=== PATIENT | male | born 1975 | race Caucasian/White ===

== ENCOUNTER → 2017-05-02 | Outpatient (CLI) | payer BC ==
--- NOTE | 2017-05-02 14:03 | ECHOS ---
STRESS ECHOCARDIOGRAM INDICATIONS: Chest pain. MEDICATIONS: Omeprazole. BASELINE HEART RATE: 89 BASELINE BLOOD PRESSURE: 124/87 MAXIMUM HEART RATE: 164 MAXIMUM BLOOD PRESSURE: 138/62 85% MPHR: 152 100% MPHR: 179 METS: 11.9 MAXIMUM STAGE REACHED: 4 TOTAL EXERCISE TIME: 10:15 CLINICAL INFORMATION: A 41-year-old, male patient with history of chest discomfort. Baseline heart rate 89 beats per minute. Baseline blood pressure 124/87 mmHg. Baseline 12-lead ECG shows normal sinus rhythm with early repolarization abnormality. Patient exercised on a Edward protocol for 10 minutes 15 seconds achieving a peak heart rate of 164 beats per minute. Normal blood pressure response to exercise. There was no ECG evidence for ischemia. No arrhythmias were noted. The baseline 2D echo images showed normal LV size and systolic function without segmental wall motion abnormalities. There was excellent augmentation of overall LV contractility at peak exercise, without development of any wall motion abnormalities. At recovery, regional global LV systolic function remain normal. IMPRESSION: 1. No ECG or echocardiographic evidence for ischemia. 2. Good exercise capacity. MMODL / IJN: [id number] /
== END | disposition home or self-care (01) ==
LOC: RADNMMAIN 09:11
PROVIDERS: ATTEND Family Medicine
DX: R07.9 Chest pain, unspecified (principal)
CPT/HCPCS: 93017; 93350

== ENCOUNTER → 2018-01-16 | Outpatient (CLI) | payer BC ==
--- NOTE | 2018-01-16 17:04 | XR ---
EXAMINATION TYPE: XR foot complete RT DATE OF EXAM: 01/16/2018 COMPARISON: NONE HISTORY: Foot pain TECHNIQUE: 3 views FINDINGS: I see no fracture nor dislocation. Metatarsals are intact. Joint spaces are normal. There a re plantar and Achilles calcaneal spurs. IMPRESSION: No fracture. Calcaneal spurring.
--- NOTE | 2018-01-16 18:13 | US ---
EXAMINATION TYPE: US thyroid st tissue head/neck DATE OF EXAM: 01/16/2018 COMPARISON: NONE CLINICAL HISTORY: E04.1 Nontoxic Single Thyroid Nodule. thyroid nodule GLAND SIZE: Right Lobe: 4.6 x 1.1 x 1.9 cm Overall Parenchyma: homogenous Left Lobe: 4.4 x 1.4 x 1.6 cm Overall Parenchyma: homogeneous Isthmus Thickness: 0.3 cm NODULES RIGHT: # of nodules measured on right: 0 LEFT: # of nodules measured on left: 1 1. 0.8 X 0.4 x 0.6 cm isoechoic solid nodule at the upper pole with poorly defined margins; . This nodule is wider than tall and shows intranodular vascularity. Prior size: no prior exam ISTHMUS: # of nodules measured in the isthmus: 0 IMPRESSION: Small oval-shaped hypoechoic nodule in the left thyroid lobe. Sonographic features are benign. Since this is solitary this could be followed conservatively with repeat ultrasound in one year.
== END | disposition home or self-care (01) ==
LOC: RADUSMAIN 16:20
PROVIDERS: ATTEND Family Medicine
DX: M77.31 Calcaneal spur, right foot (principal); E04.1 Nontoxic single thyroid nodule
CPT/HCPCS: 76536

== ENCOUNTER → 2018-03-17 | Outpatient (CLI) | payer BC ==
--- NOTE | 2018-03-17 07:52 | US ---
EXAMINATION TYPE: US gallbladder DATE OF EXAM: 03/17/2018 COMPARISON: NONE CLINICAL HISTORY: R10.11 Upper quadrant pain. EXAM MEASUREMENTS: Liver Length: 15.1 cm Gallbladder Wall: 0.2 cm CBD: 0.3 cm Right Kidney: 11.2 x 3.8 x 5.2 cm Pancreas: Tail obscured by overlying bowel gas Liver: wnl Gallbladder: wnl Evidence for sonographic Chris's sign: No CBD: wnl Right Kidney: echogenic foci, possible kidney stone measuring 0.2 x 0.2 x 0.3cm IMPRESSION: 1. Nonobstructing 3 mm right renal calculus. 2. No sonographic evidence of cholelithiasis or acute cholecystitis.
== END | disposition home or self-care (01) ==
LOC: RADUSWWP 07:05
PROVIDERS: ATTEND Family Medicine
DX: N20.0 Calculus of kidney (principal)
CPT/HCPCS: 76705

== ENCOUNTER 2018-04-05 13:28 | Emergency (ER) | payer BC ==
[2018-04-05 13:40] VITALS: PULSE 79
[2018-04-05 14:07] VITALS: BP 113/81; RESP 18; TEMP 97.9
--- NOTE | 2018-04-05 14:15 | ED ---
General Adult HPI - General Chief complaint: Recheck/Abnormal Lab/Rx Stated complaint: Boil on forehead Source: patient, RN notes reviewed, old records reviewed Mode of arrival: ambulatory Limitations: no limitations - History of Present Illness Initial comments: 42-year-old male patient with no pertinent past history presents to ED with collection of fluid on forehead. Patient states that he has had this for approximately 10 days. Patient has been able to express a small amount of fluid out of it. Patient has tried heating packs, with minimal success. 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 Patient denies history of infections, skin infections. Patient denies fever chills, nausea vomiting diarrhea, chest pain, shortness of breath, abdominal pain. Systemic: Pt denies fatigue, myalgia, fever/chills, rash. Pt denies weakness, night sweats, weight loss. Neuro: Pt denies headache, visual disturbances, syncope or pre-syncope. HEENT: Pt denies ocular discharge or irritation, otalgia, rhinorrhea, pharyngitis or notable lymphadenopathy. Cardiopulmonary: Pt denies chest pain, SOB, heart palpitations, dyspnea on exertion. Abdominal/GI: Pt denies abdominal pain, n/v/d. : Pt denies dysuria, burning w/ urination, frequency/urgency. Denies new onset urinary or bowel incontinence. MSK: Pt denies myalgia, loss of strength or function in extremities. Neuro: Pt denies new onset weakness, paresthesias. - Related Data Home Medications Medication Instructions Recorded Confirmed Acyclovir 400 mg PO BID 04/05/18 04/05/18 Ranitidine HCl [Zantac] 150 mg PO BID 04/05/18 04/05/18 Previous Rx's Medication Instructions Recorded Sulfamethox-Tmp 800-160Mg [Bactrim 2 tab PO Q12HR 10 Days #20 tab 04/05/18 DS 800-160 mg] Allergies Allergy/AdvReac Type Severity Reaction Status Date / Time No Known Allergies Allergy Verified 04/05/18 14:14 Review of Systems ROS Statement: Those systems with pertinent positive or pertinent negative responses have been documented in the HPI. ROS Other: All systems not noted in ROS Statement are negative. Past Medical History Past Medical History: No Reported History History of Any Multi-Drug Resistant Organisms: None Reported Past Surgical History: No Surgical Hx Reported Past Psychological History: No Psychological Hx Reported Smoking Status: Former smoker Past Alcohol Use History: Occasional Past Drug Use History: Marijuana General Exam - General Exam Comments Initial Comments: Constitutional: NAD, AOX3, Pt has pleasant affect. HEENT: NC/AT, trachea midline, neck supple, no lymphadenopathy. Posterior pharynx non erythematous, without exudates. External ears appear normal, without discharge. Mucous membranes moist. Eyes PERRLA, EOM intact. There is no scleral icterus. No pallor noted. Cardiopulmonary: RRR, no murmurs, rubs or gallops, no JVD noted. Lungs CTAB in anterior and posterior walker. No peripheral edema. Abdominal exam: Abdomen soft and non-distended. Abdomen non-tender to palpation in all 4 quadrants. Bowel sounds active in LLQ. No hepatosplenomegaly. No ecchymosis Neuro: CN II-XII grossly intact. No nuchal rigidity. MSK: No posterior calf tenderness bilaterally, homans sign negative bilaterally. Posterior tibialis and radial pulse +2 bilaterally. Sensation intact in upper and lower extremities. Full active ROM in upper and lower extremities, 5/5 stregnth. Derm: Approximately 2 x 2 centimeter collection of fluid noted on for had approximately 2 cm above left brow. There is mildly erythematous, mildly tender to palpation. No superficial pus noted. Small amount of skin abrasion noted, patient states that this is from scrubbing it with hot towel. Small amount of clear fluid expressed after I&D. Limitations: no limitations Course Vital Signs 04/05/18 04/05/18 13:37 14:02 Temperature 98.5 F 97.9 F Pulse Rate 79 79 Respiratory 16 18 Rate Blood Pressure 112/71 113/81 O2 Sat by Pulse 98 95 Oximetry Medical Decision Making - Medical Decision Making 42-year-old male patient with no pertinent past history presents to ED with collection of fluid on forehead. Patient states that he has had this for approximately 10 days. Patient has been able to express a small amount of fluid out of it. Patient has tried heating packs, with minimal success. 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 Physical exam revealed an approximately 2 x 2 centimeter collection of fluid noted on for had approximately 2 cm above left brow. Physical exam did not reveal any other acute pathology, systems examined including HEENT, cardiopulmonary, abdominal, MSK, neuro. And I&D was conducted with a 27-gauge needle. A small amount of serous fluid was able to be expressed. A todd to be placed on 10 days of Bactrim. Patient to follow-up with his primary care provider in 1-2 days. Patient to return to ED if any symptoms develop including fever chills, worsening erythema, increased in size, nausea vomiting diarrhea, any other new symptoms. Case discussed with Dr. Santillan. Disposition Clinical Impression: Abscess Disposition: HOME SELF-CARE Condition: Good Instructions: Abscess (ED) Additional Instructions: Patient to adhere to previously discussed treatment plan and will take medication(s) as directed. Patient to follow up with PCP in 1-2 days. Patient to return to ED if symptoms do not improve. Prescriptions: Sulfamethox-Tmp 800-160Mg [Bactrim DS 800-160 mg] 2 tab PO Q12HR 10 Days #20 tab Is patient prescribed a controlled substance at d/c from ED?: No Referrals: Tito Lockhart MD [Primary Care Provider] - 1-2 days Time of Disposition: 14:29
== END 2018-04-05 14:47 | disposition home or self-care (01) ==
LOC: EC 13:28
DX: L02.01 Cutaneous abscess of face (principal); Z87.891 Personal history of nicotine dependence; Z79.899 Other long term (current) drug therapy
CPT/HCPCS: 10060; 99283

== ENCOUNTER 2018-04-13 12:10 | Day surgery (SDC) | payer BC ==
[2018-04-10 11:54] VITALS: BMI 29.5
--- NOTE | 2018-04-12 17:10 | P.GSHP ---
History of Present Illness H&P Date: 04/13/18 CHIEF COMPLAINT: GERD and blood in stools HISTORY OF PRESENT ILLNESS: The patient is a 42-year-old male who presents with gastroesophageal reflux disease and blood in stools. Upper and lower endoscopy were offered for further evaluation and management. PAST MEDICAL HISTORY: Please see list. PAST SURGICAL HISTORY: Please see list. MEDICATIONS: Please see list. ALLERGIES: Please see list. SOCIAL HISTORY: No illicit drug use FAMILY HISTORY: No reports of Crohn disease or ulcerative colitis. REVIEW OF ORGAN SYSTEMS: CONSTITUTIONAL: No reports of fevers or chills. GI: Denies any blood in stools or constipation. PHYSICAL EXAM: VITAL SIGNS: Stable GENERAL: Well-developed pleasant in no acute distress. HEENT: No scleral icterus. Extraocular movements grossly intact. Moist buccal mucosa. NECK: Supple without lymphadenopathy. CHEST: Unlabored respirations. Equal bilateral excursions. CARDIOVASCULAR: Regular rate and rhythm. Distal 2+ pulses. ABDOMEN: Soft, nondistended. MUSCULOSKELETAL: No clubbing, cyanosis, or edema. ASSESSMENT: 1. Gastroesophageal reflux disease 2. Blood in stools PLAN: 1. Recommend proceeding with an upper and lower endoscopy Past Medical History Past Medical History: Skin Disorder Additional Past Medical History / Comment(s): intermittent rectal bleeding & abd. pain, boil on forehead History of Any Multi-Drug Resistant Organisms: None Reported Past Surgical History: No Surgical Hx Reported Additional Past Surgical History / Comment(s): wisdom teeth removed Past Anesthesia/Blood Transfusion Reactions: No Reported Reaction Smoking Status: Former smoker - Past Family History Mother Family Medical History: No Reported History Medications and Allergies Home Medications Medication Instructions Recorded Confirmed Type Acyclovir 400 mg PO BID 04/05/18 04/10/18 History Ranitidine HCl [Zantac] 150 mg PO BID 04/05/18 04/10/18 History Allergies Allergy/AdvReac Type Severity Reaction Status Date / Time No Known Allergies Allergy Verified 04/10/18 11:53
[~2018-04-13 12:10] MED LIST: LACTATED RINGERS 1,000 ML IV SCH
[2018-04-13 12:40] VITALS: TEMP 98.2
[2018-04-13] MEDS ORDERED: LIDOCAINE 1% 20 ML VIAL (10MG/ML) FOR IV START INTRADERMA ONE (12:48)
[2018-04-13] MEDS ORDERED: PROPOFOL 10 MG/ML 20 ML VIAL IV ONE (13:12)
--- NOTE | 2018-04-13 13:18 | P.PCN ---
Date of Procedure: 04/13/18 Description of Procedure: PREOPERATIVE DIAGNOSIS: Gastrointestinal bleeding POSTOPERATIVE DIAGNOSIS: Gastrointestinal bleeding Gastritis, superficial Gastroesophageal reflux disease. Erosive esophagitis Diaphragmatic hiatal hernia OPERATION: Esophagogastroduodenoscopy with biopsies along antrum and distal esophagus SURGEON: Elizabeth Russell MD ANESTHESIA: MAC. INDICATIONS: The patient is a 42-year-old male who presents with a history of reflux disease. Benefits and risks of the procedure were described. Informed consent was obtained. DESCRIPTION: The patient was brought into the endoscopy suite and laid in the left lateral decubitus position. An Olympus gastroscope was passed along the posterior oropharynx down to the distal esophagus where the squamocolumnar junction was encountered at 40 cm from the incisors. The stomach was entered and no bile reflux was found. Additional findings are listed below. Biopsies with cold forceps were obtained of the antrum. The first through third portion of the duodenum was examined and unremarkable. Retroflexion of the scope confirmed Hill grade 2 lower esophageal valve. The squamocolumnar junction demonstrated LA grade B erosive esophagitis. The stomach was desufflated. The patient tolerated the procedure well. FINDINGS: Squamocolumnar junction 40 cm from the incisors. Diaphragmatic hiatus at 41 cm. Hiatal hernia, 1 cm Hill grade 2 lower esophageal valve. LA grade B erosive esophagitis. No active duodenitis. Chronic gastritis with recent bleed RECOMMENDATIONS: Upper endoscopy as needed.
--- NOTE | 2018-04-13 13:34 | P.PCN ---
Date of Procedure: 04/13/18 Description of Procedure: PREOPERATIVE DIAGNOSIS: History of gastrointestinal bleeding POSTOPERATIVE DIAGNOSIS: History of gastrointestinal bleeding OPERATION: Colonoscopy to the ileocecal valve and appendiceal orifice. SURGEON: Elizabeth Russell MD. ANESTHESIA: MAC. INDICATIONS: The patient is a 42-year-old male who presents with history of GI bleed. Benefits and risks were described and informed consent was obtained. DESCRIPTION OF PROCEDURE: The patient had undergone Gatorade, MiraLAX and Dulcolax prep. He had been brought into the operating room and laid in the left lateral decubitus position. After adequate intravenous sedation, the rectum was examined with 2% lidocaine jelly. No external hemorrhoids were encountered. The rectal tone was within normal limits. No lesions were palpated in the rectal vault. An Olympus colonoscope was advanced until the ileocecal valve and appendiceal orifice were clearly viewed. The prep was excellent with clear visualization of the mucosal folds. The scope was removed with visualization of each mucosal fold. No scattered diverticulosis was encountered. No colonic polyps were found. No evidence of focal colitis was found. Retroflexion of the scope demonstrated grade 1 internal hemorrhoids without active bleeding or inflammation. The colon was desufflated. The patient had tolerated the procedure well. Withdrawal time was over 6 minutes. FINDINGS: Internal hemorrhoids, grade 1, likely cause of recent rectal bleeding No external prolapsed hemorrhoids. No arteriovenous malformations. No adenomatous polyps. No focal colitis. RECOMMENDATIONS: Lower endoscopy every 10 years per screening guidelines; however down to 5 years with family history of colon polyps or cancer. Plan - Discharge Summary New Discharge Prescriptions: No Action Ranitidine HCl [Zantac] 150 mg PO BID Acyclovir 400 mg PO BID Discharge Medication List Acyclovir 400 mg PO BID 04/05/18 [History] Ranitidine HCl [Zantac] 150 mg PO BID 04/05/18 [History] Follow up Appointment(s)/Referral(s): Elizabeth Russell MD [STAFF PHYSICIAN] - 05/05/18 Patient Instructions/Handouts: *[facility] - (Anesthesia) Endoscopy Discharge Instructions Discharge Disposition: HOME SELF-CARE
[2018-04-13 14:16] VITALS: BP 131/82; PULSE 66; RESP 18
== END 2018-04-13 14:37 | disposition home or self-care (01) ==
LOC: ORWHC2ENDO 12:10
PROVIDERS: ATTEND Surgery Plastic and Reconstructive Surgery
DX: K21.0 Gastro-esophageal reflux disease with esophagitis (principal); K22.10 Ulcer of esophagus without bleeding; K92.1 Melena; K64.0 First degree hemorrhoids; K44.9 Diaphragmatic hernia without obstruction or gangrene; K29.50 Unspecified chronic gastritis without bleeding; J44.9 Chronic obstructive pulmonary disease, unspecified; Z87.19 Personal history of other diseases of the digestive system; Z87.891 Personal history of nicotine dependence; Z79.899 Other long term (current) drug therapy
CPT/HCPCS: 88305; 45378; 43239; J2704

== ENCOUNTER 2018-05-18 09:02 | Emergency (ER) | payer BC ==
[2018-05-18 09:22] VITALS: RESP 18
[2018-05-18] MEDS ORDERED: ONDANSETRON 4 MG ODT STARTER PACK 2 TAB BTL PO STA (10:18)
[2018-05-18] MEDS ORDERED: ONDANSETRON ODT 4 MG TAB PO STA (10:18)
--- NOTE | 2018-05-18 10:25 | ED ---
General Adult HPI - General Chief complaint: Nausea/Vomiting/Diarrhea Stated complaint: vomiting Time Seen by Provider: 05/18/18 09:20 Source: patient, RN notes reviewed Mode of arrival: ambulatory Limitations: no limitations - History of Present Illness Initial comments: This is a 42-year-old male who presents emergency Department complaining of vomiting all night and having diarrhea. Patient states he went to bed and felt fine he woke up in the middle the night vomiting and having diarrhea. Patient states she's had no fever chills. Patient denies any abdominal pain. Patient states he's been able to drink a little water this morning but he hasn't drink too much per patient states he hasn't eaten anything yet today. Patient states his doctor couldn't see him so he came to the emergency department. Patient denies any chest pain difficult breathing shortness breath per patient denies any back pain. Patient denies dysuria hematuria urinary frequency. - Related Data Home Medications Medication Instructions Recorded Confirmed Acyclovir 400 mg PO BID 04/05/18 05/18/18 Ranitidine HCl [Zantac] 150 mg PO BID 04/05/18 05/18/18 Multivit-Min/Folic/Vit K/Lycop 1 tab PO DAILY 05/18/18 05/18/18 [Men's Multivitamin Tablet] Allergies Allergy/AdvReac Type Severity Reaction Status Date / Time No Known Allergies Allergy Verified 05/18/18 09:33 Review of Systems ROS Statement: Those systems with pertinent positive or pertinent negative responses have been documented in the HPI. ROS Other: All systems not noted in ROS Statement are negative. Past Medical History Past Medical History: Skin Disorder Additional Past Medical History / Comment(s): intermittent rectal bleeding & abd. pain, boil on forehead History of Any Multi-Drug Resistant Organisms: None Reported Past Surgical History: No Surgical Hx Reported Additional Past Surgical History / Comment(s): wisdom teeth removed Past Anesthesia/Blood Transfusion Reactions: No Reported Reaction Past Psychological History: No Psychological Hx Reported Smoking Status: Former smoker - Past Family History Mother Family Medical History: No Reported History General Exam - General Exam Comments Initial Comments: GENERAL: Patient is well-developed and well-nourished. Patient is nontoxic and well- hydrated and is in mild distress. ENT: Neck is soft and supple. No significant lymphadenopathy is noted. Oropharynx is clear. Moist mucous membranes. Neck has full range of motion without eliciting any pain. EYES: The sclera were anicteric and conjunctiva were pink and moist. Extraocular movements were intact and pupils were equal round and reactive to light. Eyelids were unremarkable. PULMONARY: Unlabored respirations. Good breath sounds bilaterally. No audible rales rhonchi or wheezing was noted. CARDIOVASCULAR: There is a regular rate and rhythm without any murmurs gallops or rubs. ABDOMEN: Soft and nontender with normal bowel sounds. No palpable organomegaly was noted. There is no palpable pulsatile mass. SKIN: Skin is clear with no lesions or rashes and otherwise unremarkable. NEUROLOGIC: Patient is alert and oriented x3. Cranial nerves II through XII are grossly intact. Motor and sensory are also intact. Normal speech, volume and content. Symmetrical smile. MUSCULOSKELETAL: Normal extremities with adequate strength and full range of motion. LYMPHATICS: No significant lymphadenopathy is noted PSYCHIATRIC: Normal psychiatric evaluation. Limitations: no limitations Course Vital Signs 05/18/18 09:18 Temperature 99.5 F Pulse Rate 89 Respiratory 18 Rate Blood Pressure 140/93 O2 Sat by Pulse 99 Oximetry Disposition Clinical Impression: Gastroenteritis Disposition: HOME SELF-CARE Condition: Good Instructions (If sedation given, give patient instructions): Acute Nausea and Vomiting (ED), Gastroenteritis (ED) Is patient prescribed a controlled substance at d/c from ED?: No Referrals: Tito Lockhart MD [Primary Care Provider] - 1-2 days Time of Disposition: 10:24
[2018-05-18 11:02] VITALS: BP 134/79; PULSE 87; TEMP 99.1
== END 2018-05-18 11:01 | disposition home or self-care (01) ==
LOC: EC 09:02
DX: K52.9 Noninfective gastroenteritis and colitis, unspecified (principal); Z87.891 Personal history of nicotine dependence; Z79.899 Other long term (current) drug therapy
CPT/HCPCS: 99283; S0119

== ENCOUNTER → 2018-10-02 | Outpatient (CLI) | payer BC ==
--- NOTE | 2018-10-02 08:24 | US ---
EXAMINATION TYPE: US abdomen complete DATE OF EXAM: 10/02/2018 COMPARISON: us 03/17/2018 CLINICAL HISTORY: R10.9 Abdominal pain. EXAM MEASUREMENTS: Liver Length: 16.7 cm Gallbladder Wall: 0.2 cm CBD: 0.3 cm Spleen: 10.9 cm Right Kidney: 10.4 x 4.0 x 4.3 cm Left Kidney: 11.1 x 5.3 x 4.5 cm Pancreas: Obscured by bowel gas Liver: There is increased echogenicity of the hepatic parenchyma with diminished visualization of th e portal triads most commonly relating to hepatic steatosis and limiting evaluation for underlying he patic masses. Gallbladder: wnl Evidence for sonographic Chris's sign: No CBD: wnl, distal portion obscured by bowel gas Spleen: wnl Right Kidney: No hydronephrosis or masses seen . The previously seen right calculus measuring 3 mm o n the prior exam of 03/17/2018 is no longer visualized. Left Kidney: No hydronephrosis. Cystic area visualized lower pole measuring 1.8 x 1.1 x 1.3 cm Upper IVC: wnl Abd Aorta: wnl The liver is heterogeneous. The intrahepatic portion of the IVC and proximal abdominal aorta are wit hin normal limits. There is no evidence of cholelithiasis. Common bile duct is unremarkable. The s pleen is unremarkable. Kidneys are symmetric and free of hydronephrosis. IMPRESSION: 1. Findings most commonly related to underlying hepatic steatosis sonographically. Correlate with david er function tests. 2. The previously seen 3 mm right renal calculus is no longer visualized and may have passed in the i nterim. 3. Nonvisualization the pancreas, obscured by bowel gas. 4. Probable 1.8 cm renal cyst.
== END ==
LOC: RADUSWWP 07:37
PROVIDERS: ATTEND Family Medicine
DX: R10.9 Unspecified abdominal pain (principal)
CPT/HCPCS: 76700

== ENCOUNTER → 2018-11-05 | Outpatient (CLI) | payer BC ==
[2018-11-05 17:27] LABS: African American GFR (CKD) >90 (>60 ml/min/1.73 sqM); Blood Urea Nitrogen 19 mg/dL (9-20)
--- NOTE | 2018-11-06 08:01 | CT ---
EXAMINATION TYPE: CT abdomen wo/w con DATE OF EXAM: 11/05/2018 COMPARISON: Complete abdominal ultrasound October 02, 2018 HISTORY: Renal mass. CT DLP: 1452.9 mGycm, Automated Exposure Control for Dose Reduction was Utilized. CONTRAST: CT scan of the abdomen is performed with oral and without and with IV Contrast, patient injected with 100ml mL of Isovue 300. FINDINGS: LUNG BASES: No significant abnormality is appreciated. LIVER/GB: Contracted gallbladder is seen. PANCREAS: No significant abnormality is seen. SPLEEN: No significant abnormality is seen. ADRENALS: No significant abnormality is seen. KIDNEYS: Noncontrast images show no renal calculi bilaterally. Postcontrast images show symmetric cor ticomedullary uptake and excretion without evidence of hydronephrosis seen bilaterally. At upper pole level right kidney anteriorly there is subcentimeter low dense lesion series 8 image 37 too small to further characterize but presumed benign not clearly seen on recent ultrasound. Correlating with rec ent ultrasound there is exophytic low-density round lesion lower pole level left kidney measuring 1.3 cm with Hounsfield units between 0 and 10 on all sequences obtained consistent with simple thin-wall ed cyst. No worrisome solid or cystic masses are identified in either kidney. BOWEL: Oral contrast only reaches mid small bowel loops in the left abdomen. No suspicious small or l arge bowel dilatation. Normal-appearing appendix and cecum is partially seen. There is huri-bq-dbolsj te wall thickening of the terminal ileum incidentally noted. Correlate clinically for inflammatory orquidea wel disease. LYMPH NODES: No greater than 1cm abdominal lymph nodes are appreciated. OSSEOUS STRUCTURES: No significant abnormality is seen. OTHER: No significant additional abnormality is seen. IMPRESSION: 1. There is confirmation of simple appearing 1.3 cm exophytic thin-walled cyst lower pole of the left kidney. 2. Incidental mild to moderate wall thickening terminal ileum although this could be product of poor distention correlate clinically to exclude inflammatory bowel disease such as Crohn's disease.
== END | disposition home or self-care (01) ==
LOC: RADCTMAIN 16:42
PROVIDERS: ATTEND Family Medicine
DX: N28.1 Cyst of kidney, acquired (principal); R93.5 Abnormal findings on diagnostic imaging of other abdominal regions, including retroperitoneum; Z13.9 Encounter for screening, unspecified
CPT/HCPCS: 74170; 82565; 84520

== ENCOUNTER → 2018-12-05 | Outpatient (CLI) | payer BC ==
--- NOTE | 2018-12-05 11:26 | NM ---
Nuclear medicine hepatobiliary scan. HISTORY: Pain. DOSAGE: The patient received 8 ounces of ensure plus and 5.3 mCi of Technetium 99m Choletec. FINDINGS: There is normal hepatic extraction. The gallbladder is seen by 20 minutes. There is bilia ry to bowel clearance is delayed and not seen at 60 minutes.. Ejection fraction is 86%. IMPRESSION: 1. No evidence of cholecystitis. Delayed biliary to bowel clearance is a nonspecific finding. 2. Ejection fraction is 86% which can occasionally be seen with hyperdynamic gallbladder correlate cl inically.
== END | disposition home or self-care (01) ==
LOC: RADNMMAIN 08:57
PROVIDERS: ATTEND Family Medicine
DX: R10.11 Right upper quadrant pain (principal)
CPT/HCPCS: 78226; A9537

== ENCOUNTER 2020-02-09 04:57 | Emergency (ER) | payer BC ==
[2020-02-09 05:07] VITALS: BP 125/85; PULSE 69; RESP 18; TEMP 98.2
[2020-02-09] MEDS ORDERED: FLUORESCEIN STRIPS 1 MG STRIP LEFT EYE ONE (06:04)
--- NOTE | 2020-02-09 06:26 | ED ---
Eye Problem HPI - General Chief complaint: Eye Problems Stated complaint: FB in eye Time Seen by Provider: 02/09/20 06:02 Source: patient Mode of arrival: ambulatory Limitations: no limitations - History of Present Illness Initial comments: 44yo prsenting for cc of dirt in the left eye, states that last night while mowing the grass he got dirt in his left eye. Patient states that rinsed it out. Today he states that he woke up with mild itching of the left eye, but since he has been waiting for a provider in the ER he states that it feel better, he just needs a work note. patient denies headaches nausea vomiting visual changes vision loss or eye redness. - Related Data Home Medications Medication Instructions Recorded Confirmed Acyclovir 400 mg PO BID 04/05/18 05/18/18 Ranitidine HCl [Zantac] 150 mg PO BID 04/05/18 05/18/18 Multivit-Min/Folic/Vit K/Lycop 1 tab PO DAILY 05/18/18 05/18/18 [Men's Multivitamin Tablet] Previous Rx's Medication Instructions Recorded Erythromycin Ophth Oint [Romycin 1 applic LEFT EYE QID 3 Days #1 02/09/20 Ophth Oint] tube Allergies Allergy/AdvReac Type Severity Reaction Status Date / Time No Known Allergies Allergy Verified 02/09/20 05:07 Review of Systems ROS Statement: Those systems with pertinent positive or pertinent negative responses have been documented in the HPI. ROS Other: All systems not noted in ROS Statement are negative. Past Medical History Past Medical History: Skin Disorder Additional Past Medical History / Comment(s): intermittent rectal bleeding & abd. pain, boil on forehead History of Any Multi-Drug Resistant Organisms: None Reported Past Surgical History: No Surgical Hx Reported Additional Past Surgical History / Comment(s): wisdom teeth removed Past Anesthesia/Blood Transfusion Reactions: No Reported Reaction Past Psychological History: No Psychological Hx Reported Smoking Status: Never smoker Past Alcohol Use History: Rare Past Drug Use History: Marijuana - Past Family History Mother Family Medical History: No Reported History General Exam - General Exam Comments Initial Comments: General: The patient is awake and alert, in no distress Eye: +3mm pupils are equal, round and reactive to light, extra-ocular movements are intact. No nystagmus. There is normal conjunctiva bilaterally. No signs of icterus. No fluorescein uptake. no photophobia. or pain to palpation of the scalp Ears, nose, mouth and throat: There are moist mucous membranes and no oral lesions. Musculoskeletal: Normal ROM, no tenderness. Strength 5/5. Sensation intact. radial pulses equal bilaterally 2+. Neurological: A&O x 3. CN II-XII intact grossly, There are no obvious motor or sensory deficits. Coordination appears grossly intact. Speech is normal. Skin: Skin is warm and dry and no rashes or lesions are noted. Psychiatric: Cooperative, appropriate mood & affect, normal judgment. Limitations: no limitations Course Vital Signs 02/09/20 05:04 Temperature 98.2 F Pulse Rate 69 Respiratory 18 Rate Blood Pressure 125/85 O2 Sat by Pulse 96 Oximetry Medical Decision Making - Medical Decision Making 44yo male presenting for cc of left eye irritation. hx dirt in left eye. no obvious large abrasion. patient states symptoms improved. no additional complaints. pt will be discharged with erythromycin and work note. Disposition Clinical Impression: Eye irritation Disposition: HOME SELF-CARE Condition: Good Instructions (If sedation given, give patient instructions): Eye Foreign Body (ED) Additional Instructions: Please use medication as discussed. Please follow-up with family doctor in the next 2 days. Please return to emergency room if the symptoms increase or worsen or for any other concerns. Prescriptions: Erythromycin Ophth Oint [Romycin Ophth Oint] 1 applic LEFT EYE QID 3 Days #1 tube Is patient prescribed a controlled substance at d/c from ED?: No Referrals: Jc Mejia DO [Primary Care Provider] - 1-2 days Time of Disposition: 06:26
== END 2020-02-09 06:37 | disposition home or self-care (01) ==
LOC: EC 04:57
DX: H57.89 Other specified disorders of eye and adnexa (principal)
CPT/HCPCS: 99283

== ENCOUNTER 2022-04-27 14:44 | Emergency (ER) | payer BC ==
[2022-04-27 14:59] VITALS: TEMP 98.8
[2022-04-27 15:27] VITALS: PULSE 78
--- NOTE | 2022-04-27 15:41 | ED ---
Fever HPI - General Chief Complaint: Fever Stated Complaint: lightheaded Time Seen by Provider: 04/27/22 15:19 Source: patient, RN notes reviewed Mode of arrival: ambulatory Limitations: no limitations - History of Present Illness Initial Comments: 46-year-old male who states he had the onset 4 days ago of fever bodyaches frontal headache dizziness generalized weakness some nausea. He states temperature got as high as 102. He still feeling achy and headachy he's had diaphoresis with it he states the temperature is gone now however somewhat his frontal headache he states he gets worse with positional changes and bending over. He was seen at a local outpatient clinic but results are pending and the clinic is closed today. He has a dry cough no phlegm production no chest pain no other current complaints or modifying factors other than his mother states that she was recently ill. She's not sure with the etiology was. MD Complaint: fever, other - Related Data Home Medications Medication Instructions Recorded Confirmed Multivit-Min/Folic/Vit K/Lycop 1 tab PO DAILY 05/18/18 05/18/18 [Men's Multivitamin Tablet] Albuterol Inhaler [Ventolin Hfa 2 puff INHALATION RT-Q4H PRN 04/27/22 04/27/22 Inhaler] Omeprazole 20 mg PO DAILY 04/27/22 04/27/22 Propranolol LA [Inderal LA] 60 mg PO DAILY 04/27/22 04/27/22 valACYclovir HCL [Valacyclovir] 500 mg PO DAILY 04/27/22 04/27/22 Previous Rx's Medication Instructions Recorded Ondansetron Odt [Zofran Odt] 4 mg PO Q8HR PRN #12 tab 04/27/22 Allergies Allergy/AdvReac Type Severity Reaction Status Date / Time No Known Allergies Allergy Verified 04/27/22 16:33 Review of Systems ROS Statement: Those systems with pertinent positive or pertinent negative responses have been documented in the HPI. ROS Other: All systems not noted in ROS Statement are negative. Past Medical History Past Medical History: Skin Disorder Additional Past Medical History / Comment(s): intermittent rectal bleeding & abd. pain, boil on forehead History of Any Multi-Drug Resistant Organisms: None Reported Past Surgical History: No Surgical Hx Reported Additional Past Surgical History / Comment(s): wisdom teeth removed Past Anesthesia/Blood Transfusion Reactions: No Reported Reaction Past Psychological History: No Psychological Hx Reported Smoking Status: Never smoker Past Alcohol Use History: Rare Past Drug Use History: Marijuana - Past Family History Mother Family Medical History: No Reported History General Exam - General Exam Comments Initial Comments: This is a well up well-nourished awake alert oriented 4 male boggy nasal mucosa Limitations: no limitations General appearance: alert, in no apparent distress Head exam: Present: atraumatic, normocephalic, normal inspection Eye exam: Present: normal appearance, PERRL, EOMI. Absent: scleral icterus, conjunctival injection, periorbital swelling ENT exam: Present: normal exam, mucous membranes moist Neck exam: Present: normal inspection, full ROM, other (No stridor JVD or bruits). Absent: tenderness, meningismus, lymphadenopathy Respiratory exam: Present: normal lung sounds bilaterally. Absent: respiratory distress, wheezes, rales, rhonchi, stridor Cardiovascular Exam: Present: regular rate, normal rhythm, normal heart sounds. Absent: systolic murmur, diastolic murmur, rubs, gallop, clicks GI/Abdominal exam: Absent: distended, tenderness, guarding, rebound, rigid Extremities exam: Present: normal inspection, full ROM, normal capillary refill. Absent: tenderness, pedal edema, joint swelling, calf tenderness Back exam: Present: normal inspection, full ROM. Absent: tenderness Neurological exam: Present: alert, oriented X3, CN II-XII intact Psychiatric exam: Present: normal affect, normal mood Skin exam: Present: warm, intact, normal color, diaphoretic. Absent: rash Course Vital Signs 04/27/22 04/27/22 14:55 15:26 Temperature 98.8 F Pulse Rate 88 78 Respiratory 16 20 Rate Blood Pressure 153/75 138/70 O2 Sat by Pulse 99 98 Oximetry Medical Decision Making - Medical Decision Making I did discuss findings with the patient's mother was present. Patient still having some nausea he is positive for influenza type A negative for type be negative for: Seen. Presentation is consistent with a viral syndrome. The symptoms started over 4 days ago likely no improvement from Tamiflu we did discuss this with the patient. We discharged with instructions for increase oral fluids and symptomatic care. Was pt. sent in by a medical professional or institution? @ No-[by , PA, TREAD BUILDER, urgent care, hospital, or senior care] Did you speak to anyone other than the patient for history? @ No-[EMS, parent, family, police, friend?] Did you review nursing and triage notes? @Yes and agree -[agree or disagree, why?] Were old charts reviewed? @ No-[outside hosp., previous admissions, EMS record, old EKG, old radiological studies, urgent care reports/EKGs, senior care records?] Differential Diagnosis? @ Influenza, covid, pneumonia,-[chest pain, altered mental status abdominal pain women, abdominal pain men, vaginal bleeding, weakness, fever, dyspnea, syncope, headache, dizziness, GI bleed, back pain, seizure] EKG interpreted by me (3pts min.)? @ -[none] X-rays interpreted by me (1pt min.)? @ Yes chest x-ray revealed no evidence of infiltrate-[none] CT interpreted by me (1pt min.)? @ -[none] U/S interpreted by me (1pt. min.)? @ -[none] What testing was considered but not performed? (CT, X-rays, U/S, labs)? Why? @ None [CT, X-rays, U/S, labs? Why?] What meds were considered but not given? Why? @ -[none] Did you discuss the management of the patient with other professionals? @ No-[professionals i.e. Dr, PA, TREAD BUILDER, Lab, RT, Psych Nurse, Tape Cutting Machine Operator, Drywall Taper Helper, Teacher, Grades 1 6 Tutor, outpatient case manager? Give summary] Did you reconcile home meds? @ -[none] Was smoking cessation discussed for >3mins.? @ -[none] Was critical care preformed (if so, how long)? @ -[none] Were there social determinants of health that impacted care today? How? (Homelessness, low income, unemployed, alcoholism, drug addiction, transportation, low edu. Level, literacy, decrease access to med. care, [facility], rehab)? @ -[Homelessness, low income, unemployed, alcoholism, drug addiction, transportation, low edu. Level, literacy, decrease access to med. care, [facility], rehab?] Was there de-escalation of care discussed even if they declined? (Discuss DNR or withdrawal of care, Hospice)? @ -[Discuss DNR or withdrawal of care, Hospice?] What co-morbidities impacted this encounter? (DM, HTN, Smoking, COPD, CAD, Cancer, CVA, Hep., AIDS, mental health diagnosis, sleep apnea, morbid obesity)? @ -[DM, HTN, Smoking, COPD, CAD, Cancer, CVA, Hep., AIDS, mental health diagnosis, sleep apnea, morbid obesity?] Was patient admitted / discharged? @ Patient was discharged home-[hospital course] Undiagnosed new problem with uncertain prognosis? @ -[none] Drug Therapy requiring intensive monitoring for toxicity (Heparin, Nitro, Insulin, Cardizem)? @ -[none] Were any procedures done? @ -[none] Diagnosis/symptom? @ Viral syndrome, influenza type A -[default] Acute, or Chronic, or Acute on Chronic? @ Acute-[default] Uncomplicated (without systemic symptoms) or Complicated (systemic symptoms)? @ -[default] Side effects of treatment? @ -[none] Exacerbation, Progression, or Severe Exacerbation] @ -[no] Poses a threat to life or bodily function? @ -[no] - Lab Data Lab Results 04/27/22 Range/Units 15:34 Influenza Type A (PCR) Detected A (Not Detectd) Influenza Type B (PCR) Not Detected (Not Detectd) RSV (PCR) Not Detected (Not Detectd) SARS-CoV-2 (PCR) Not Detected (Not Detectd) - Radiology Data Interpreted by me: I did evaluate and interpret the chest x-ray no evidence of acute processes. Disposition Clinical Impression: Influenza, Viral syndrome, Nausea Disposition: HOME SELF-CARE Condition: Good Instructions (If sedation given, give patient instructions): Influenza (ED), Acute Nausea and Vomiting (ED), Viral Syndrome (ED) Additional Instructions: Continue with your current medications Prescriptions: Ondansetron Odt [Zofran Odt] 4 mg PO Q8HR PRN #12 tab PRN Reason: Nausea Is patient prescribed a controlled substance at d/c from ED?: No Referrals: Jc Mejia DO [Primary Care Provider] - 1-2 days Decision Date: 04/27/22 Decision Time: 16:42
--- NOTE | 2022-04-27 16:03 | XR ---
EXAMINATION TYPE: XR chest 2V DATE OF EXAM: 04/27/2022 COMPARISON: 06/10/2021 HISTORY: Short of breath TECHNIQUE: 2 views FINDINGS: Heart and mediastinum are normal. Lungs are clear. Diaphragm is normal. Bony thorax is inta ct. IMPRESSION: Normal chest. No change.
[2022-04-27] MEDS ORDERED: ONDANSETRON ODT 4 MG TAB PO STA (16:34)
[2022-04-27 16:50] VITALS: BP 124/74; RESP 22
== END 2022-04-27 16:50 | disposition home or self-care (01) ==
LOC: EC 14:44
DX: J11.1 Influenza due to unidentified influenza virus with other respiratory manifestations (principal); F12.90 Cannabis use, unspecified, uncomplicated; Z20.822 Contact with and (suspected) exposure to COVID-19
CPT/HCPCS: 71046; 87636; 99284